=== PATIENT | female | born 1940 | race Caucasian/White ===

== ENCOUNTER 2021-02-22 16:37 | Inpatient (IN) | payer BC ==
[2021-02-22 19:51] LABS: HEMATOCRIT 40.6 % (32.4-45.2); HEMOGLOBIN 13.6 GM/dL (10.7-15.3); MCH 33.4 pg (25.7-33.7); MCHC 33.6 g/dl (32.0-36.0); MEAN CELL VOLUME 99.5 fl (80-96); MEAN PLT VOLUME 10.6 fl (7.5-11.1); PLATELET COUNT 199 10^3/uL (134-434); RBC 4.08 M/mm3 (3.60-5.2); RDW 16.3 % (11.6-15.6)
[2021-02-22] MEDS ORDERED: ACETAMINOPHEN 325 MG TABLET (FP) PO ONE (19:57)
[2021-02-22 19:58] LABS: INR 0.96 (0.83-1.09); PROTHROMBIN TIME (PATIENT) 11.8 SEC (9.7-13.0)
[2021-02-22] MEDS ORDERED: ACETAMINOPHEN 325 MG TABLET (FP) ONE (19:59)
[2021-02-22 20:00] LABS: ACTIVATED PTT 24.5 SECONDS (25.2-36.5)
[2021-02-22 20:15] LABS: CALCIUM 10.6 mg/dL (8.5-10.1)
[2021-02-22 20:16] LABS: ALBUMIN 4.1 g/dl (3.4-5.0); BLOOD UREA NITROGEN 22.3 mg/dL (7-18)
[2021-02-22 20:19] LABS: ANISOCYTOSIS 0; CREATININE 0.6 mg/dL (0.55-1.3); HELMET CELLS 0; HOWELL-JOLLY BODIES 0; MACROCYTOSIS 0; OVALOCYTE 0; PLATELET ESTIMATE NORMAL; ROULEAU 0; SICKELED CELLS 0; TARGET CELLS 0; TEAR DROP CELLS 0; TOXIC GRANULATION 0
[2021-02-22 20:20] LABS: BILIRUBIN,TOTAL 0.4 mg/dL (0.2-1); TOT PROT 6.6 g/dl (6.4-8.2)
[2021-02-22 21:21] LABS: PH,URINE 5.5 (5.0-8.0); URINE APPEARANCE CLEAR; URINE BILIRUBIN NEGATIVE (NEGATIVE); URINE COLOR YELLOW; URINE GLUCOSE (UA) NEGATIVE (NEGATIVE); URINE KETONE 1+ (NEGATIVE); URINE LEUK ESTERASE NEGATIVE (NEGATIVE); URINE NITRITE NEGATIVE (NEGATIVE); URINE PROTEIN TRACE (NEGATIVE); URINE UROBILINOGEN 0.2 mg/dL (0.2-1.0)
[2021-02-23] MEDS: SODIUM CHLORIDE 0.45% 1,000 ML IV SCH (02:01)
[2021-02-23] MEDS: MORPHINE SULFATE 2 MG/ML VIAL IVPUSH PRN ×3 (03:04→23:01)
[2021-02-23 03:20] LABS: HEMATOCRIT 32.7 % (32.4-45.2); HEMOGLOBIN 11.2 GM/dL (10.7-15.3); MCH 34.3 pg (25.7-33.7); MCHC 34.2 g/dl (32.0-36.0); MEAN CELL VOLUME 100.3 fl (80-96); MEAN PLT VOLUME 10.2 fl (7.5-11.1); PLATELET COUNT 177 10^3/uL (134-434); RBC 3.26 M/mm3 (3.60-5.2); RDW 15.9 % (11.6-15.6)
[2021-02-23] MEDS ORDERED: ACETAMINOPHEN 1000 MG/100 ML VIAL (NON FORMULARY) IVPB PRN (04:09)
[2021-02-23] MEDS ORDERED: MELATONIN 5 MG TABLETS PO PRN (04:18)
[2021-02-23] MEDS: ACETAMINOPHEN 1000 MG/100 ML VIAL (NON FORMULARY) IVPB PRN ×2 (06:22→20:20)
[2021-02-23] MEDS: LEVOTHYROXINE NA 88 MCG TABLET (FP) PO SCH (06:22)
[2021-02-23] MEDS ORDERED: valACYclovir HCL 1000 MG TABLET PO SCH (10:00)
[2021-02-23] MEDS ORDERED: valACYclovir HCL 500 MG TABLET (FP) ONE (10:02)
[2021-02-23] MEDS ORDERED: valACYclovir HCL 500 MG TABLET (FP) PO SCH (10:09)
[2021-02-23] MEDS: amLODIPine BESYLATE 5 MG TABLET (FP) PO SCH (10:10)
[2021-02-23 12:00] LABS: BASO % 0.3 % (0-2.0); HEMATOCRIT 29.8 % (32.4-45.2); HEMOGLOBIN 10.1 GM/dL (10.7-15.3); LYMPH % 6.4 % (8-40); MCH 33.3 pg (25.7-33.7); MCHC 33.9 g/dl (32.0-36.0); MEAN CELL VOLUME 98.4 fl (80-96); MEAN PLT VOLUME 10.2 fl (7.5-11.1); MONO % 6.9 % (3.8-10.2); NEUT % 86.4 % (42.8-82.8); PLATELET COUNT 169 10^3/uL (134-434); RBC 3.03 M/mm3 (3.60-5.2); RDW 15.8 % (11.6-15.6); WHITE BLOOD COUNT 11.9 K/mm3 (4.0-10.0)
[2021-02-23 12:31] LABS: CALCIUM 9.8 mg/dL (8.5-10.1)
[2021-02-23 12:32] LABS: BLOOD UREA NITROGEN 16.5 mg/dL (7-18); MAGNESIUM 2.3 mg/dL (1.8-2.4)
[2021-02-23 12:34] LABS: CREATININE 0.6 mg/dL (0.55-1.3)
[2021-02-23 12:35] LABS: PHOSPHOROUS 2.6 mg/dL (2.5-4.9)
[2021-02-23 12:36] LABS: BILIRUBIN,TOTAL 0.5 mg/dL (0.2-1); TOT PROT 5.4 g/dl (6.4-8.2)
[2021-02-23 12:50] LABS: ALBUMIN 3.2 g/dl (3.4-5.0)
[2021-02-24] MEDS: SODIUM CHLORIDE 0.45% 1,000 ML IV SCH ×2 (02:13→04:13)
[2021-02-24] MEDS ORDERED: PT OWN MED DRAWER 7, Y5N ONE (06:41)
[2021-02-24] MEDS: LEVOTHYROXINE NA 88 MCG TABLET (FP) PO SCH (06:43)
[2021-02-24] MEDS ORDERED: fentaNYL CITRATE 250 MCG/5 ML VIAL ONE (08:35)
[2021-02-24] MEDS ORDERED: PROPOFOL 20 ML ONE (08:35)
[2021-02-24] MEDS ORDERED: MIDAZOLAM HCL 2 MG/2 ML SINGLE DOSE VIAL ONE (08:35)
[2021-02-24] MEDS ORDERED: ceFAZolin SODIUM 1 GM VIAL IVPB ONE (09:20)
[2021-02-24] MEDS ORDERED: HYDROmorphone HCl 2 MG/ML VIAL ONE (10:31)
[2021-02-24] MEDS ORDERED: NEOSTIGMINE METHYLSULFATE 0.5 MG/ML - 10 ML MDV ONE (10:35)
[2021-02-24] MEDS: amLODIPine BESYLATE 5 MG TABLET (FP) PO SCH (12:09)
[2021-02-24] MEDS ORDERED: SODIUM CHLORIDE 0.45% 1,000 ML IV SCH (12:20)
[2021-02-24] MEDS ORDERED: MORPHINE SULFATE 2 MG/ML VIAL IVPUSH PRN (12:20)
[2021-02-24] MEDS ORDERED: MELATONIN 5 MG TABLETS PO PRN (12:20)
[2021-02-24] MEDS ORDERED: ONDANSETRON 4 MG/2 ML VIAL IVPUSH PRN (12:42)
[2021-02-24] MEDS ORDERED: PROMETHAZINE HCL 25 MG/1 ML VIAL IVPUSH PRN (12:42)
[2021-02-24] MEDS ORDERED: SODIUM CHLORIDE 1,000 ML IV SCH (12:45)
[2021-02-24] MEDS: valACYclovir HCL 500 MG TABLET (FP) PO SCH (21:50)
[2021-02-24] MEDS ORDERED: ACETAMINOPHEN 325 MG TABLET (FP) PO ONE (23:46)
[2021-02-25] MEDS ORDERED: PT OWN MED DRAWER 7, Y5N ONE ×2 (06:33→21:22)
[2021-02-25] MEDS: LEVOTHYROXINE NA 88 MCG TABLET (FP) PO SCH (06:50)
[2021-02-25 08:59] LABS: BASO % 0.3 % (0-2.0); EOS % 0.1 % (0-4.5); HEMOGLOBIN 7.3 GM/dL (10.7-15.3); LYMPH % 7.8 % (8-40); MCH 33.1 pg (25.7-33.7); MCHC 33.3 g/dl (32.0-36.0); MEAN CELL VOLUME 99.5 fl (80-96); MEAN PLT VOLUME 10.5 fl (7.5-11.1); MONO % 11.8 % (3.8-10.2); PLATELET COUNT 134 10^3/uL (134-434); RBC 2.21 M/mm3 (3.60-5.2); RDW 15.9 % (11.6-15.6)
[2021-02-25 09:27] LABS: CALCIUM 10.2 mg/dL (8.5-10.1)
[2021-02-25 09:28] LABS: ALBUMIN 2.6 g/dl (3.4-5.0); BLOOD UREA NITROGEN 20.9 mg/dL (7-18)
[2021-02-25 09:29] LABS: BILIRUBIN,TOTAL 0.4 mg/dL (0.2-1); TOT PROT 4.9 g/dl (6.4-8.2)
[2021-02-25 09:31] LABS: CREATININE 0.7 mg/dL (0.55-1.3)
[2021-02-25] MEDS ORDERED: valACYclovir HCL 500 MG TABLET (FP) PO SCH (10:00)
[2021-02-25] MEDS: amLODIPine BESYLATE 5 MG TABLET (FP) PO SCH (11:01)
[2021-02-25] MEDS ORDERED: ACETAMINOPHEN 325 MG TABLET (FP) PO PRN (11:10)
[2021-02-25] MEDS ORDERED: ACETAMINOPHEN 1000 MG/100 ML VIAL (NON FORMULARY) IVPB PRN (11:18)
[2021-02-25 15:15] VITALS: BMI 17.3
[2021-02-25] MEDS: ACETAMINOPHEN 325 MG TABLET (FP) PO PRN (18:16)
[2021-02-25] MEDS: valACYclovir HCL 500 MG TABLET (FP) PO SCH (23:06)
[2021-02-26] MEDS ORDERED: PT OWN MED DRAWER 7, Y5N ONE ×2 (05:58→06:37)
[2021-02-26] MEDS: LEVOTHYROXINE NA 88 MCG TABLET (FP) PO SCH (06:46)
[2021-02-26] MEDS: ACETAMINOPHEN 325 MG TABLET (FP) PO PRN ×2 (09:06→22:49)
[2021-02-26] MEDS: amLODIPine BESYLATE 5 MG TABLET (FP) PO SCH (09:07)
[2021-02-26 12:48] LABS: BLOOD UREA NITROGEN 21.5 mg/dL (7-18); CALCIUM 9.6 mg/dL (8.5-10.1)
[2021-02-26 12:52] LABS: CREATININE 0.6 mg/dL (0.55-1.3)
[2021-02-26 14:09] LABS: BASO % 0.5 % (0-2.0); EOS % 0.5 % (0-4.5); HEMATOCRIT 27.9 % (32.4-45.2); HEMOGLOBIN 9.5 GM/dL (10.7-15.3); MCH 34.3 pg (25.7-33.7); MCHC 34.1 g/dl (32.0-36.0); MEAN CELL VOLUME 100.6 fl (80-96); MONO % 7.5 % (3.8-10.2); NEUT % 83.5 % (42.8-82.8); PLATELET COUNT 166 10^3/uL (134-434); RBC 2.78 M/mm3 (3.60-5.2); RDW 15.9 % (11.6-15.6); WHITE BLOOD COUNT 13.2 K/mm3 (4.0-10.0)
[2021-02-26] MEDS: valACYclovir HCL 500 MG TABLET (FP) PO SCH (22:02)
[2021-02-27] MEDS ORDERED: PT OWN MED DRAWER 7, Y5N ONE (05:38)
[2021-02-27] MEDS: LEVOTHYROXINE NA 88 MCG TABLET (FP) PO SCH (06:17)
[2021-02-27] MEDS: ENOXAPARIN NA (PORCINE) 40 MG/0.4 ML DISP.SYRIN SQ SCH ×2 (09:07→09:11)
[2021-02-27] MEDS: amLODIPine BESYLATE 5 MG TABLET (FP) PO SCH (09:08)
[2021-02-27] MEDS: ACETAMINOPHEN 325 MG TABLET (FP) PO PRN (10:51)
[2021-02-27] MEDS: valACYclovir HCL 500 MG TABLET (FP) PO SCH (22:10)
[2021-02-27 23:27] VITALS: BP 119/68; PULSE 87; TEMP 98.9
[2021-02-28] MEDS ORDERED: APIXABAN 2.5 MG TABLET PO SCH (10:00)
== END 2021-02-28 00:05 | DRG 480 ==
LOC: JER 16:37 → JERBED 20:22 → J6S 02-23 02:35
PROVIDERS: ADMIT Internal Medicine; ATTEND Internal Medicine
PROC: 0QS706Z Reposition Left Upper Femur with Intramedullary Internal Fixation Device, Open Approach (ICD-10-PCS; principal; 2021-02-24 08:30)
PROC: 0PSL04Z Reposition Left Ulna with Internal Fixation Device, Open Approach (ICD-10-PCS; 2021-02-24 08:30)
PROC: 30233N1 Transfusion of Nonautologous Red Blood Cells into Peripheral Vein, Percutaneous Approach (ICD-10-PCS; 2021-02-26)
DX: S52.022A Displaced fracture of olecranon process without intraarticular extension of left ulna, initial encounter for closed fracture (principal); S72.142A Displaced intertrochanteric fracture of left femur, initial encounter for closed fracture; B00.2 Herpesviral gingivostomatitis and pharyngotonsillitis; J98.11 Atelectasis; D62 Acute posthemorrhagic anemia; E03.9 Hypothyroidism, unspecified; I10 Essential (primary) hypertension; D72.829 Elevated white blood cell count, unspecified; M81.0 Age-related osteoporosis without current pathological fracture; I48.0 Paroxysmal atrial fibrillation; K20.90 Esophagitis, unspecified without bleeding; M41.9 Scoliosis, unspecified; S00.03XA Contusion of scalp, initial encounter; W01.0XXA Fall on same level from slipping, tripping and stumbling without subsequent striking against object, initial encounter; Y93.89 Activity, other specified; Y92.89 Other specified places as the place of occurrence of the external cause
CPT/HCPCS: 36415; 36430; 36511; 70450-TC; 71045-TC-FY; 72125-TC; 73070-TC-LT-FY; 73523-TC-FY; 73552-TC-LT-FY; 76000-TC-FY; 80048; 80053; 81003; 82728; 83540; 83550; 83735; 84100; 84436; 84439; 84443; 84481; 85025; 85027; 85610; 85730; 86850; 86870; 86900; 86901; 86902; 86922; 93005; 93010; 94760; 97116-GP; 97162-GP; 99285-25; C9803; J0131; P9038; P9058; U0003; U0005